=== PATIENT | male | born 1955 | race Caucasian/White ===

== ENCOUNTER 2022-08-18 15:18 | Inpatient (IN) | payer MEDICARE, OTHER ==
[~2022-08-18] VITALS: Ht 180.3 cm; Wt 76.2 kg
--- NOTE | 2022-08-18 16:45 | NUR ---
RECEIVED PT 66 MALE CAME BY PRAMDIC PULL OUT GT PT AWAKE AND CONFUSED
[2022-08-18 17:55] LABS: BASOPHILS # (AUTO) 0.1 K/uL (0.0-0.2); BASOPHILS % (AUTO) 0.6 % (0.0-2.0); EOSINOPHILS % (AUTO) 0.3 % (0.0-6.0); HEMATOCRIT 39 % (39-51); HEMOGLOBIN 12.5 g/dL (13.5-17.5); LYMPHOCYTES % (AUTO) 13.1 % (20.0-44.0); MEAN CORPUSCULAR HGB CONC 32 g/dl (31.0-36.0); MEAN CORPUSCULAR VOLUME 91 fL (80-96); MONOCYTES # (AUTO) 2.2 K/uL (0.1-1.30); MONOCYTES % (AUTO) 14.4 % (2.0-12.0); NEUTROPHILS # (AUTO) 11.2 K/uL (1.8-8.9); NEUTROPHILS % (AUTO) 71.6 % (43.0-81.0); PLATELET COUNT (AUTO) 715 K/uL (150-450); RED BLOOD CELL COUNT(AUTO) 4.32 MIL/uL (4.5-6.0); WHITE BLOOD COUNT (AUTO) 15.6 K/uL (4.3-11.0)
--- NOTE | 2022-08-18 18:06 | NUR ---
COVID ANTIGEN SWAB DONE AND SENT TO THE LAB
[2022-08-18 18:16] LABS: CALCIUM, SERUM 9.6 mg/dL (8.5-10.1); CREATININE 1.1 mg/dL (0.6-1.3); POTASSIUM 4.8 mmol/L (3.5-5.1)
--- NOTE | 2022-08-18 18:29 | NUR ---
IV ACCESS ESTABLISHED 20G LEFT WRIST.
[2022-08-18] MEDS ORDERED: ONDANSETRON HCL/PF 4 MG/2 ML VIAL IVP PRN (19:30)
[2022-08-18] MEDS ORDERED: LORAZEPAM INJ 2 MG/ML VIAL IV PRN (19:30)
[2022-08-18] MEDS ORDERED: DEXTROSE 50%-WATER 50 ML DISP.SYRIN IV PRN (19:30)
[2022-08-18] MEDS ORDERED: ACETAMINOPHEN 325 MG TABLET PO PRN (19:30)
[2022-08-18] MEDS ORDERED: Z GUARD REMEDY 4 OZ OINT TP PRN (19:30)
[2022-08-18] MEDS ORDERED: MAG HYDROX/AL HYDROX/SIMETH 30 ML UDC PO PRN (19:30)
[2022-08-18] MEDS ORDERED: MAGNESIUM HYDROXIDE 30 ML UDC PO PRN (19:30)
--- NOTE | 2022-08-18 19:37 | NUR ---
HAND OFF VINCE
--- NOTE | 2022-08-18 20:08 | NUR ---
REPORT GIVEN TO [employer] FOR HAILE
--- NOTE | 2022-08-18 20:14 | NUR ---
PT TO 3W VIA [facility]
--- NOTE | 2022-08-18 20:15 | NUR ---
GETTING TRANSFERRED TO [facility] IN STABLE CONDITION
[2022-08-18 20:30] VITALS: BP 139/83
--- NOTE | 2022-08-18 20:30 | NUR ---
MS RN NOTES NPO FOR NOW AWAITING GI CONSULT
--- NOTE | 2022-08-18 20:30 | NUR ---
MS EXTRAS CASTING DIRECTOR NOTES RECEIVED FROM ER PER SHAHLA THIS 66 YO MALE,A/O X1, CONFUSED, FROM [facility],WAS SENT HERE DUE GT MALFUNCTION.GT SITE CLEAN CLEAN AND DRY,COVERED WITH DRY DRESSING.WITH SALINE LOCK ON LEFT WRIST #20,STARTED ON IVF D5 1/2 NS AT 75ML/HR RATE,INFUSING VIA IV PUMP.
[2022-08-18] MEDS: IV D5/0.45 NACL 1,000 ML IV PRN (21:10)
[2022-08-18] MEDS: BLOOD SUGAR DIAGNOSTIC 1 EACH STRIP VI SCH (21:54)
--- NOTE | 2022-08-18 22:15 | NUR ---
MS RN NOTES ACCU-CHECK BLOOD SUGAR CHECK 127MG/DL,NO INSULIN COVERAGE.IVF INFUSING ON LEFT WRIST SALINE VIA IV PUMP.
--- NOTE | 2022-08-19 06:00 | NUR ---
MS RN NOTES ACCU-CHECK BLOOD SUGAR CHECK 130,NO INSULIN COVERAGE.IVF INFUSING WELL ON LEFT ARM.
[2022-08-19] MEDS: BLOOD SUGAR DIAGNOSTIC 1 EACH STRIP VI SCH ×4 (06:25→22:50)
[2022-08-19 06:26] LABS: BASOPHILS # (AUTO) 0.1 K/uL (0.0-0.2); BASOPHILS % (AUTO) 0.6 % (0.0-2.0); EOSINOPHILS % (AUTO) 0.1 % (0.0-6.0); HEMATOCRIT 37 % (39-51); HEMOGLOBIN 12.2 g/dL (13.5-17.5); LYMPHOCYTES # (AUTO) 1.8 K/uL (0.8-4.8); LYMPHOCYTES % (AUTO) 13.7 % (20.0-44.0); MEAN CORPUSCULAR HGB CONC 33 g/dl (31.0-36.0); MEAN CORPUSCULAR VOLUME 91 fL (80-96); MONOCYTES # (AUTO) 1.7 K/uL (0.1-1.30); MONOCYTES % (AUTO) 12.8 % (2.0-12.0); NEUTROPHILS # (AUTO) 9.5 K/uL (1.8-8.9); NEUTROPHILS % (AUTO) 72.8 % (43.0-81.0); PLATELET COUNT (AUTO) 696 K/uL (150-450); RED BLOOD CELL COUNT(AUTO) 4.12 MIL/uL (4.5-6.0); WHITE BLOOD COUNT (AUTO) 13.1 K/uL (4.3-11.0)
[2022-08-19 07:03] LABS: CALCIUM, SERUM 9.2 mg/dL (8.5-10.1); MAGNESIUM 2.3 mg/dL (1.8-2.4); PHOSPHORUS 4.3 mg/dL (2.5-4.9); POTASSIUM 4.1 mmol/L (3.5-5.1)
--- NOTE | 2022-08-19 07:06 | NUR ---
MS RN NOTES ON BED CALM AND QUIET,SPEECH GURBLED.IVF INFUSING WELL ON LEFT ARM.NO FALL,NO INJURY.BED ALARM FOR SAFETY. PER RECORD AT [facility],PATIENT CODE STATUS IS DNR.POLST FAXED BY [employer] CONSTRUCTION SALES REPRESENTATIVE AT NIGHT BUT ITS ALL BLACK OUT.PATIENT STILL FULL CODE TILL COPY OF POLST RECEIVED.IN NO ACUTE DISTRESS.
--- NOTE | 2022-08-19 07:20 | NUR ---
RN OPENING NOTES. RECEIVED PT ON BED. PT IS AWAKE, A/OX1. NO SIGNS OF ACUTE DISTRESS NOTED. ON ROOM AIR TOLERATING WELL. NO SOB NOTED, BREATHING EVEN AND UNLABORED. PT IV ACCESS PRESENT ON LEFT HAND #20G RUNNING D5 1/2 NS @75ML/HR, PATENT , INTACT AND FLUSHES WITH NO S&SX OF INFILTRATION @ SITE NOTED. SAFETY MEASURES IS IN PLACE. BED IN LOW AND LOCKED POSITION. SIDE RAILS UP X 3. BED TABLE AND CALL LIGHT IS WITHIN EASY REACH. BED ALARM IS ON. WILL CONTINUE TO MONITOR.
[2022-08-19 08:00] VITALS: BP 150/96
--- NOTE | 2022-08-19 12:45 | NUR ---
MS RN NOTE PATIENT PICKED UP FOR SURGERY SCHEDULED. IN STABLE CONDITION.
[2022-08-19] MEDS ORDERED: CEFAZOLIN 1 GM ONE ×2 (14:28→14:29)
[2022-08-19 16:00] VITALS: BP 160/97
[2022-08-19] MEDS ORDERED: SERT50TA GT (16:44)
[2022-08-19] MEDS ORDERED: LISI20TA30 GT (16:44)
[2022-08-19] MEDS ORDERED: ATOR40TA GT (16:44)
[2022-08-19] MEDS ORDERED: VALP250S4 GT (16:44)
[2022-08-19] MEDS ORDERED: KETO15CR2 TP (16:44)
[2022-08-19] MEDS ORDERED: ASPI-1169 GT (16:44)
[2022-08-19] MEDS ORDERED: NUT.250L18 PO (16:44)
[2022-08-19] MEDS ORDERED: LANS30CA56 GT (16:44)
[2022-08-19] MEDS ORDERED: ENOX40DI SQ (16:44)
[2022-08-19] MEDS ORDERED: CHLO473M5 MM (16:44)
[2022-08-19] MEDS ORDERED: HYDR28.32 TP (16:44)
[2022-08-19] MEDS ORDERED: IPRA3AMP23 IH (16:44)
[2022-08-19] MEDS ORDERED: ACET-868 GT (16:44)
[2022-08-19] MEDS ORDERED: QUET25TA GT ×2 (16:44)
--- NOTE | 2022-08-19 19:10 | NUR ---
RN CLOSING NOTE. PATIENT ON BED, AWAKE, A/OX1, APHASIC. NO SIGNS OF ACUTE DISTRESS NOTED. ON ROOM AIR TOLERATING WELL. NO SOB NOTED, BREATHING EVEN AND UNLABORED. PT IV ACCESS PRESENT ON LEFT HAND #20G RUNNING D5 1/2 NS @75ML/HR, PATENT , INTACT AND FLUSHES WITH NO S&SX OF INFILTRATION @ SITE NOTED. S/P G-TUBE INSERTION. FOR G-TUBE DIETARY CONSULT. SAFETY MEASURES IS IN PLACE. BED IN LOW AND LOCKED POSITION. SIDE RAILS UP X 3. BED TABLE AND CALL LIGHT IS WITHIN EASY REACH. BED ALARM IS ON. WILL ENDORSE TO NIGHT NURSE FOR CONTINUITY OF CARE.
--- NOTE | 2022-08-19 19:50 | NUR ---
MS RN OPENING NOTES RECEIVED PATIENT IN BED AWAKE. A/O X 1, APHASIC. ON ROOM AIR, BREATHING EVEN AND UNLABORED, NO SIGNS OF DISTRESS OR SOB NOTED. IV ACCESS ON LEFT HAND #20G RUNNING D5 1/2 NS @75ML/HR, INFUSING WELL. S/P G-TUBE INSERTION NOTED. SAFETY MEASURES IN PLACE WITH BED IN LOWEST LOCKED POSITION. SIDE RAILS UP X 3. BED TABLE AND CALL LIGHT IS WITHIN EASY REACH. BED ALARM ON. WILL CONTINUE TO MONITOR AND REASSESS FOR ANY CHANGES AND WILL CARRY OUT ANY ONGOING AND ACTIVE MD ORDERS.
[2022-08-19 21:13] VITALS: BP 167/98
[2022-08-19] MEDS: *INSULIN REGULAR(HUMULIN R)HUM 100 UNIT/ML VIAL SQ PRN (23:32)
[2022-08-20] MEDS: IV D5/0.45 NACL 1,000 ML IV PRN ×2 (00:11→13:35)
[2022-08-20] MEDS: INSULIN REGULAR, HUMAN 100 UNIT/ML 3 ML VIAL SQ PRN ×3 (06:48→17:04)
[2022-08-20] MEDS: BLOOD SUGAR DIAGNOSTIC 1 EACH STRIP VI SCH ×4 (06:49→22:00)
--- NOTE | 2022-08-20 07:30 | NUR ---
MS RN OPENING NOTE RECEIVED PT AWAKE AND RESTING IN BED. PT IS A/O X1, REORIENTED PT NEEDED. PT ON ROOM AIR, TOLERATING WELL. NO SOB NOTED. NOT IN ANY SIGN OF RESPIRATORY DISTRESS. IV ACCESS ON RFA G#20 INTACT AND PATENT WITH D5 1/2 NS INFUSING AT 75ML/HR. GTUBE INTACT AND IN PLACE. KEPT HOB ELEVATED. SAFETY MEASURES IN PLACE: BED IN LOWEST AND LOCKED POSITION, SIDE RAILS UPX2, BED ALARM ON, AND CALL LIGHT WITHIN REACH. WILL CONTINUE PT WITH PLAN OF CARE.
--- NOTE | 2022-08-20 07:31 | NUR ---
MS RN CLOSING NOTES PATIENT IN BED AWAKE. A/O X 1, APHASIC. ON ROOM AIR, BREATHING EVEN AND UNLABORED, NO SIGNS OF DISTRESS OR SOB NOTED. IV ACCESS ON LEFT HAND #20G RUNNING D5 1/2 NS @75ML/HR, INFUSING WELL. G-TUBE DRESSING CHANGED. SAFETY MEASURES MAINTAINED WITH BED IN LOWEST LOCKED POSITION. SIDE RAILS UP X 3. BED TABLE AND CALL LIGHT IS WITHIN EASY REACH. BED ALARM ON. WILL ENDORSE TO THE NEXT SHIFT.
[2022-08-20 08:00] VITALS: BP 175/96
--- NOTE | 2022-08-20 09:00 | NUR ---
RN NOTE CALLED DR. FARRELL AND LEFT MESSAGE MADE HIM AWARE THAT PT IS ON S/P GTUBE PLACEMENT DONE YESTERDAY 08/19/22 AND CURRENTLY HAS NO TUBE FEEDING ORDER. AWAITING FOR HIS CALL BACK.
--- NOTE | 2022-08-20 11:30 | NUR ---
RN NOTE PT SEEN BY DR. FARRELL WITH ORDERS TO START PT ON GTUBE FEEDING OF GLUCERNA 1.2 AT 65ML/HR. TO START AT 20ML/HR AND INCREASE 10ML/HR TOLERATED UNTIL THE DOSAGE REACHED. ORDERS CARRIED OUT. Addendum: 08/20/22 at 1848 by JORGE SANCHEZ RN ADDENDUM: GTUBE FEEDING TO INFUSE FOR 24HRS.
[2022-08-20] MEDS: GLUCERNA 1.2 1,000 ML BOTTLE GT PRN (12:59)
--- NOTE | 2022-08-20 15:40 | NUR ---
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 CALLED DR. FARRELL AND MADE HIM AWARE OF THE CRITICAL RESULT WITH NO NEW ORDERS AT THIS TIME.
[2022-08-20 16:17] VITALS: BP 171/93
--- NOTE | 2022-08-20 18:30 | NUR ---
RN NOTE PT NOTED WITH VOMITING X1 WHILE ON GTUBE FEEDING OF GLUCERNA 1.2 AT 20ML/HR. RESIDUAL WAS 10ML WHEN CHECKED. FEEDING STOPPED AND KEPT HOB ELEVATED AT ALL TIMES. CALL DR. FARRELL AND MADE HIM AWARE OF PT'S CONDITION WITH ORDERS TO STOP FEEDING AT THIS TIME THEN RESUME IN 2 HOURS STARTING AT 20ML AGAIN. WILL ENDORSE TO SENIOR POLICY ADVISOR NURSE.
--- NOTE | 2022-08-20 19:25 | NUR ---
MS RN CLOSING NOTE PT AWAKE AND RESTING IN BED. PT IS A/O X1, REORIENTED PT NEEDED. PT ON ROOM AIR, TOLERATING WELL. NO SOB NOTED. NOT IN ANY SIGN OF RESPIRATORY DISTRESS. IV ACCESS ON RFA G#20 INTACT AND PATENT WITH D5 1/2 NS INFUSING AT 75ML/HR. GTUBE INTACT AND IN PLACE. KEPT HOB ELEVATED. ALL NEEDS ATTENDED. KEPT CLEAN AND COMFORTABLE AT ALL TIMES. TURNED AND REPOSITIONED Q2HRS AND NEEDED. SAFETY MEASURES IN PLACE: BED IN LOWEST AND LOCKED POSITION, SIDE RAILS UPX2, BED ALARM ON, AND CALL LIGHT WITHIN REACH. ENDORSED TO OUTSIDE INSTALLER APPRENTICE NURSE FOR HAILE. Addendum: 08/20/22 at 1936 by JORGE SANCHEZ RN ADDENDUM: ENDORSED TO OUTSIDE INSTALLER APPRENTICE NURSE TO RESUME GTUBE FEEDING AT 2030 STARTING AT 20ML/HR AND TO INCREASE TOLERATED PER MD'S ORDER.
[2022-08-20 20:00] VITALS: BP 139/79
--- NOTE | 2022-08-20 20:33 | NUR ---
MS RN OPENING NOTES; RECEIVED PATIENT SLEEP IN BED, COMFORTABLY, AROUSABLE TO VERBAL STIMULI, BE DIN LOW POSITION CALL LIGHTS WITHIN REACH, NO COMPLAIN OF PAIN AND DISCOMFORT AT THIS TIME, ON ROOM AIR SATURATING WELL, PATIENT IS A/O X1 IV LINE AT RFA#20 WITH ONGOING D5 1/2 NSS@75ML/HR INFUSING WELL, PATIENT IS NPO S/P GT PLACEMENT TO HOLD AND RESUME AFTER 2 HOURS TO START AT 20 AND INCREASE TO 20ML TO REACH 65ML/HR , PATIENT HAS VOMITTING EPISODE IN AM SHIFT HOSPITALIST WAS MADE AWARE, PATIENT KEPT CLEAN AND DRY ALL NEEDS MET, WILL CONTINUE TO MONITOR.
[2022-08-20] MEDS: *INSULIN REGULAR(HUMULIN R)HUM 100 UNIT/ML VIAL SQ PRN (22:48)
--- NOTE | 2022-08-20 22:49 | NUR ---
RN NOTES: BLOOD SUGAR- 181- 3 UNITS REGULAR INSULIN GIVEN PER SLIDING SCALE,
[2022-08-21] MEDS: IV D5/0.45 NACL 1,000 ML IV PRN ×2 (02:54→17:09)
[2022-08-21 05:56] LABS: BASOPHILS # (AUTO) 0.2 K/uL (0.0-0.2); BASOPHILS % (AUTO) 0.6 % (0.0-2.0); HEMATOCRIT 39 % (39-51); HEMOGLOBIN 12.5 g/dL (13.5-17.5); LYMPHOCYTES % (AUTO) 7.2 % (20.0-44.0); MEAN CORPUSCULAR HGB CONC 32 g/dl (31.0-36.0); MEAN CORPUSCULAR VOLUME 91 fL (80-96); MONOCYTES # (AUTO) 1.9 K/uL (0.1-1.30); NEUTROPHILS # (AUTO) 23.6 K/uL (1.8-8.9); NEUTROPHILS % (AUTO) 85.2 % (43.0-81.0); PLATELET COUNT (AUTO) 675 K/uL (150-450); WHITE BLOOD COUNT (AUTO) 27.7 K/uL (4.3-11.0)
--- NOTE | 2022-08-21 06:25 | NUR ---
RN NOTES: INITIATE G TUBE FEEDING OF GLUCERNA 1.2@20 ML/HR TO INCREASE 10ML TILL REACH GOAL OF 65, PATIENT HAS AN EPISODE OF VOMITING, YESTERDAY IN AM SHIFT, NOTIFIED DR AND ORDERED TO RESUME FEEDING IN AM, PATIENT WAS ABLE TO TOLERATE WELL, WILL CONTINUE TO MONITOR FOR ANY CHANGES AND ENDORSE IN AM SHIFT.
[2022-08-21] MEDS: INSULIN REGULAR, HUMAN 100 UNIT/ML 3 ML VIAL SQ PRN ×5 (06:39→22:23)
--- NOTE | 2022-08-21 06:51 | NUR ---
RN NOTES: BLOOD SUGAR-155/ 2 UNITS REGULSR INSULIN GIVEN PER SLIDING SCALE.
--- NOTE | 2022-08-21 06:54 | NUR ---
MS RN CLOSING NOTES: RECEIVED PATIENT SLEEP IN BED COMFORTABLY, AROUSABLE TO VERBAL STIMULI, BED IN LOW POSITION CALL LIGHTS WITHIN REACH, NO COMPLAIN OF PAIN AND DISCOMFORT AT THIS TIME, ON ROOM AIR SATURATING WELL, PATIENT ON G TUBE FEEDING INITIATE AGAIN AT 20ML/HR TO INCREASE AT 10 TO REACH 65ML/HR, PATIENT WAS NOT ABLE TO TOLERATE FEEDING AND HAS EPISODE OF VOMITING, ON CONTINUOUS MONITORING NO EPISODE OF VOMITING AND WAS ABLE TO TOLERATE AT 20ML/HR, PATIENT WAS S/P G TUBE INSERTION, HAS ABDOMINAL BINDER IN PLACE, PATIENT KEPT CLEAN AND DRY ALL NEEDS MET ENDORSE TO INCOMING SHIFT.
--- NOTE | 2022-08-21 07:30 | NUR ---
MS RN OPENING NOTE RECEIVED PT AWAKE AND RESTING IN BED. PT IS A/O X1, REORIENTED PT NEEDED. PT ON ROOM AIR, TOLERATING WELL. NO SOB NOTED. NOT IN ANY SIGN OF RESPIRATORY DISTRESS. IV ACCESS ON RFA G#20 INTACT AND PATENT WITH D5 1/2 NS INFUSING AT 75ML/HR. GTUBE INTACT AND IN PLACE. ABD BINDER APPLIED ORDERED. SKIN CLEAN AND INTACT.KEPT HOB ELEVATED. SAFETY MEASURES IN PLACE: BED IN LOWEST AND LOCKED POSITION, SIDE RAILS UPX2, BED ALARM ON, AND CALL LIGHT WITHIN REACH. WILL CONTINUE PT WITH PLAN OF CARE.
[2022-08-21] MEDS: BLOOD SUGAR DIAGNOSTIC 1 EACH STRIP VI SCH ×4 (07:36→22:27)
[2022-08-21 08:13] VITALS: BP 160/96
[2022-08-21 08:49] LABS: ALBUMIN 2.2 g/dL (3.4-5.0); BILIRUBIN,TOTAL 0.6 mg/dL (0.2-1.0); CALCIUM, SERUM 9.3 mg/dL (8.5-10.1); CREATININE 1.2 mg/dL (0.6-1.3); MAGNESIUM 2.1 mg/dL (1.8-2.4); PHOSPHORUS 3.9 mg/dL (2.5-4.9); POTASSIUM 4.1 mmol/L (3.5-5.1); TOTAL PROTEIN, SERUM 7.8 g/dL (6.4-8.2)
--- NOTE | 2022-08-21 09:51 | NUR ---
MS RN NOTES: DR. ROSENTHAL NOTIFIED WBC 27.7 WITH NEW ORDER REPEAT CBC AT 1000
--- NOTE | 2022-08-21 10:30 | NUR ---
DR. ROSENTHAL NOTIFIED FOR POSITIVE MRSA NARES WITH NO NEW ORDER AT THIS TIME.
[2022-08-21 10:38] LABS: HEMOGLOBIN 11.8 g/dL (13.5-17.5); LYMPHOCYTES # (AUTO) 2.1 K/uL (0.8-4.8); LYMPHOCYTES % (AUTO) 6.6 % (20.0-44.0)
[2022-08-21 11:05] LABS: BASOPHILS % (AUTO) 0.1 % (0.0-2.0); HEMATOCRIT 37 % (39-51); MEAN CORPUSCULAR HGB CONC 32 g/dl (31.0-36.0); MEAN CORPUSCULAR VOLUME 90 fL (80-96); MONOCYTES # (AUTO) 2.1 K/uL (0.1-1.30); MONOCYTES % (AUTO) 6.8 % (2.0-12.0); NEUTROPHILS # (AUTO) 27.2 K/uL (1.8-8.9); NEUTROPHILS % (AUTO) 86.5 % (43.0-81.0); PLATELET COUNT (AUTO) 652 K/uL (150-450); RED BLOOD CELL COUNT(AUTO) 4.07 MIL/uL (4.5-6.0)
[2022-08-21 11:22] LABS: WHITE BLOOD COUNT (AUTO) 31.4 K/uL (4.3-11.0)
--- NOTE | 2022-08-21 11:31 | NUR ---
RECEIVED A CRITICAL LAB VALUE. WBC OF 31.4, DR VELAZCO WAS MADE AWARE AND HE SAID HOLD DC AND HE WILL CALL DR. HERNANDEZ FOR A CONSULT.
--- NOTE | 2022-08-21 12:59 | NUR ---
MS RN NOTE URINE COLLECTED AND SENT TO LAB
[2022-08-21 14:53] LABS: BILIRUBIN,URINE 1+ (NEGATIVE); COLOR,URINE YELLOW (YELLOW); LEUKOCYTE ESTERASE ,URINE 2+ (NEGATIVE); NITRITE, URINE POSITIVE (NEGATIVE); PROTEIN,URINE 2+ mg/dl (NEGATIVE); UGLUCOSE NEGATIVE (NEGATIVE)
[2022-08-21 15:32] LABS: BACTERIA,URINE Many /HPF (None Seen)
[2022-08-21 16:22] LABS: SQUAMOUS EPITHELIAL CELL,UR Few /HPF (None Seen)
[2022-08-21 16:44] VITALS: BP 158/84
[2022-08-21 17:34] LABS: LYMPHOCYTES % (MANUAL) 7 % (16-48); MONOCYTES % (MANUAL) 8 % (0-11.0); NEUTROPHILS % (MANUAL) 85 (42-76)
--- NOTE | 2022-08-21 18:28 | NUR ---
MS RN CLOSING NOTE PT AWAKE AND RESTING IN BED. PT IS A/O X1.. PT ON ROOM AIR, TOLERATING WELL. NO SOB NOTED. NOT IN ANY SIGN OF RESPIRATORY DISTRESS. IV ACCESS ON RFA G#20 INTACT AND PATENT WITH D5 1/2 NS INFUSING AT 75ML/HR. GTUBE INTACT AND IN PLACE. GT FEEDING TOLERATED. NO N/V NOTED. ABD BINDER PLACED. NO S/S OF SKIN BREAKDOWN NOTED. . KEPT HOB ELEVATED. ALL NEEDS ATTENDED. KEPT CLEAN AND COMFORTABLE AT ALL TIMES. TURNED AND REPOSITIONED Q2HRS AND NEEDED. SAFETY MEASURES IN PLACE: BED IN LOWEST AND LOCKED POSITION, SIDE RAILS UPX2, BED ALARM ON, AND CALL LIGHT WITHIN REACH. ENDORSED TO SCALEMAKER NURSE FOR HAILE.
--- NOTE | 2022-08-21 19:20 | NUR ---
RN OPENING NOTES; RECEIVED PT IN BED WITH EYES CLOSED BUT EASY TO AROUSED,AOX1 APHASIC,KRIS WELL ON RM AIR SAT 98%,NO SIGN SOB/DISTRESS NOTED,IV ACCESS ON RFA 20G WITH D5 1/2NS 75ML/HR INFUSING WELL,GTUBE IN PLACE WITH GLUCERNA 40ML/HR INFUSING WELL,NO RESIDUAL,HOB ELEVATED AT ALL TIME,SAFETY MEASURE IN PLACE,CALL LIGHT WITHIN REACH,WILL CONTINUE TO MONITOR.
[2022-08-21 20:11] VITALS: BP 132/74
[2022-08-21] MEDS ORDERED: PIPERACILLIN /TAZOBACTAM 3.375 G in IV D5W 50 ML IV SCH (21:00)
[2022-08-21] MEDS: PIPERACILLIN /TAZOBACTAM 3.375 G in IV D5W 100 ML IV SCH (21:21)
[2022-08-22] MEDS: PIPERACILLIN /TAZOBACTAM 3.375 G in IV D5W 100 ML IV SCH ×3 (04:19→21:01)
--- NOTE | 2022-08-22 06:15 | NUR ---
RN CLOSING NOTES; PATIENT IN BED WITH EYES CLOSED BUT EASY TO AROUSED,AOX1 APHASIC,KRIS WELL ON RM AIR SAT 97%,NO SIGN SOB/DISTRESS NOTED,DUE MEDS GIVEN ORDER,ALL NEEDS ATTENDED,IV ACCESS ON LFA 22G WITH D5 1/2NS 75ML/HR INFUSING WELL,GTUBE IN PLACE WITH GLUCERNA 40ML/HR INFUSING WELL,EXTRA FLUID GIVEN VIA GT KRIS,NO RESIDUAL,HOB ELEVATED AT ALL TIME,SAFETY MEASURE IN PLACE,CALL LIGHT WITHIN REACH,WILL ENDORSED TO NEXT SHIFT.
[2022-08-22] MEDS: INSULIN REGULAR, HUMAN 100 UNIT/ML 3 ML VIAL SQ PRN ×3 (06:39→17:46)
[2022-08-22] MEDS: BLOOD SUGAR DIAGNOSTIC 1 EACH STRIP VI SCH ×4 (06:45→21:47)
--- NOTE | 2022-08-22 07:05 | NUR ---
RN NOTES; TWO TIMES TO ATTEMPT STRAIGHT CATH BUT NO OUT PUT,PT URINATE IN THE DIAPER, WATER FLUSHING THE GTUBE 500ML DURING SHIFT.
--- NOTE | 2022-08-22 07:30 | NUR ---
MS RN OPENING NOTES RECEIVED PT LYING IN BED WITH EYES CLOSED, EASY TO AROUSE, APHASIC, IN SEMI-FOWLERS POSITION. ON RA BREATHING NORMALLY. IV ACCESS ON LFA 24 G RUNNING ON D5 1/2 NS 75 ML/HR. GTUBE IN PLACED WITH GLUCERNA RUNNING AT 50 ML/HR. INCONTINENT X2. NO COMPLAINTS OF PAIN. FALL SAFETY MEASURES IN PLACED AND MAINTAIN AT ALL TIMES. BED IN LOW AND LOCK POSITION. CALL LIGHT WITHIN REACH. SIDE RAILS UP X2. WILL CONTINUE TO MONITOR.
[2022-08-22 08:06] LABS: BASOPHILS % (AUTO) 0.1 % (0.0-2.0); HEMATOCRIT 36 % (39-51); HEMOGLOBIN 11.8 g/dL (13.5-17.5); LYMPHOCYTES # (AUTO) 1.6 K/uL (0.8-4.8); LYMPHOCYTES % (AUTO) 6.1 % (20.0-44.0); MEAN CORPUSCULAR HGB CONC 32 g/dl (31.0-36.0); MEAN CORPUSCULAR VOLUME 90 fL (80-96); MONOCYTES # (AUTO) 1.5 K/uL (0.1-1.30); MONOCYTES % (AUTO) 5.9 % (2.0-12.0); NEUTROPHILS % (AUTO) 87.9 % (43.0-81.0); PLATELET COUNT (AUTO) 550 K/uL (150-450); RED BLOOD CELL COUNT(AUTO) 4.05 MIL/uL (4.5-6.0); WHITE BLOOD COUNT (AUTO) 26.2 K/uL (4.3-11.0)
[2022-08-22 08:21] VITALS: BP 126/82
[2022-08-22 08:27] LABS: BILIRUBIN,TOTAL 0.5 mg/dL (0.2-1.0); CREATININE 0.9 mg/dL (0.6-1.3); MAGNESIUM 2.3 mg/dL (1.8-2.4); PHOSPHORUS 3.5 mg/dL (2.5-4.9); POTASSIUM 3.5 mmol/L (3.5-5.1); TOTAL PROTEIN, SERUM 7.3 g/dL (6.4-8.2)
[2022-08-22 16:02] VITALS: BP 130/77
--- NOTE | 2022-08-22 18:26 | NUR ---
MS RN CLOSING NOTES PT LYING IN BED RESTING COMFORTABLY, EASY TO AROUSE, APHASIC, IN SEMI-FOWLERS POSITION. ON RA BREATHING NORMALLY. IV ACCESS ON RFA 22 G RUNNING ON D5 1/2 NS 75 ML/HR. GTUBE IN PLACED WITH GLUCERNA RUNNING AT 65 ML/HR. PT WAS THREW UP WITH MINIMAL EMESIS. ZOFRAN PRN GIVEN. REFUSED INSULIN SLIDING SCALE IN DINNER TIME. KEPT HEAD OF BED ELEVATED. NO COMPLAINTS OF PAIN. FALL SAFETY MEASURES IN PLACED AND MAINTAIN AT ALL TIMES. BED IN LOW AND LOCK POSITION. CALL LIGHT WITHIN REACH. SIDE RAILS UP X2. WILL ENDORSE TO NIGHTSHIFT NURSE.
--- NOTE | 2022-08-22 19:00 | NUR ---
MS STUDIO HAND INITIAL NOTES Received report from am nurse and seen py in bed resting with eyes closed , breathing even and non-labored on semi fowlers position with g-tube off at this time because per am nurse pt had nausea and some emesis but subside after zofran given. No signs of any acute distress noted . He still have IVF of D51/2 NS at 75ml/hr infusing at this time. Kept him warm and comfortable at all times. Bed in low and lock in position with side rails x2 up and bed alarm set for safety. will continue monitoring.
[2022-08-22] MEDS: MUPIROCIN OINT 2% 22 GM TUBE NS SCH (21:21)
--- NOTE | 2022-08-22 21:41 | NUR ---
RN NOTE PATIENT IS ANXIOUS AND AGITATED. LORAZEPAM INJ 0.5 MG 0.25 ML GIVEN IV ORDERED. KEPT COMFORTABLE IN BED. WILL CONTINUE TO MONITOR PT.
[2022-08-22] MEDS: *INSULIN REGULAR(HUMULIN R)HUM 100 UNIT/ML VIAL SQ PRN (21:50)
[2022-08-22 21:56] VITALS: BP 158/89
--- NOTE | 2022-08-22 22:00 | NUR ---
ms sylvester notes blood sugar checked done 165, 2 units of Insulin given as ordered. Resumed his G-tube feeding as ordered, kept him on sitting position for aspiration precaution. No signs of hypo glycemia noted. will continue monitoring.
[2022-08-23] MEDS: PIPERACILLIN /TAZOBACTAM 3.375 G in IV D5W 100 ML IV SCH ×3 (04:55→20:42)
[2022-08-23] MEDS: GLUCERNA 1.2 1,000 ML BOTTLE GT PRN (05:26)
[2022-08-23] MEDS: IV D5/0.45 NACL 1,000 ML IV PRN (05:27)
[2022-08-23 06:35] LABS: BASOPHILS # (AUTO) 0.1 K/uL (0.0-0.2); BASOPHILS % (AUTO) 0.6 % (0.0-2.0); HEMATOCRIT 36 % (39-51); HEMOGLOBIN 11.8 g/dL (13.5-17.5); LYMPHOCYTES % (AUTO) 10.6 % (20.0-44.0); MEAN CORPUSCULAR HGB CONC 33 g/dl (31.0-36.0); MEAN CORPUSCULAR VOLUME 90 fL (80-96); MONOCYTES % (AUTO) 5.5 % (2.0-12.0); NEUTROPHILS # (AUTO) 15.3 K/uL (1.8-8.9); NEUTROPHILS % (AUTO) 83.3 % (43.0-81.0); PLATELET COUNT (AUTO) 542 K/uL (150-450); RED BLOOD CELL COUNT(AUTO) 4.02 MIL/uL (4.5-6.0); WHITE BLOOD COUNT (AUTO) 18.4 K/uL (4.3-11.0)
[2022-08-23] MEDS: BLOOD SUGAR DIAGNOSTIC 1 EACH STRIP VI SCH ×4 (06:38→21:31)
[2022-08-23] MEDS: INSULIN REGULAR, HUMAN 100 UNIT/ML 3 ML VIAL SQ PRN ×4 (06:45→21:52)
--- NOTE | 2022-08-23 07:31 | NUR ---
MS TIN CLOSING NOTES Pt. resting at this time. pain meds helped but he stated that his pain on and off. He also stated "thank you" . All due meds given and all needs met . No signs of any acute distress or any discomfort noted at this time. Kept him warm and comfortable at all times. Bed in low and lock in position . will endorse to am nurse for continuity of care. Place call light at reach. Addendum: 08/23/22 at 0734 by ELI SANCHEZ LVN disregards this notes belong to other patient.
--- NOTE | 2022-08-23 07:36 | NUR ---
MS RN OPENING NOTE (DAYSHIFT) RECEIVED PT LYING IN BED WITH EYES CLOSED, EASY TO AROUSE, APHASIC, IN SEMI-FOWLERS POSITION. ON RA BREATHING NORMALLY. IV ACCESS ON LFA 24 G INFUSING D5 1/2 NS AT 75 ML/HR. G-TUBE IN PLACE WITH GLUCERNA RUNNING AT 50 ML/HR. (INCREASED FEEDING TO 65 mLs/ HR. NO COMPLAINTS OF PAIN. FALL SAFETY MEASURES IN PLACE AND MAINTAINED AT ALL TIMES. BED IN LOW AND LOCKED POSITION. CALL LIGHT WITHIN REACH. SIDE RAILS UP X 2. WILL CONTINUE TO MONITOR AND CARE FOR PATIENT PER HOSPITALIST'S POC.
--- NOTE | 2022-08-23 07:39 | NUR ---
MS WARHEAD MAINTENANCE SPECIALIST CLOSING NOTES PT AWAKE AT THIS TIME WATCHING TV , NO SIGNS OF ANY DISTRESS OR ANY DISCOMFORT. NO ASPIRATION NOTED THROUGOUT THE NIGHT. HE TOLERATED G-TUBE FEEDING WELL. KEPT HIM HOB ELEVATED FOR ASPIRATION PRECAUTION. ALL DUE MEDS GIVEN AND ALL NEEDS MET. MORNING CARE DONE WITH THE HELPED OF HVAC MECHANIC AND REPOSITION FOR COMFORT. BED IN LOW AND LOCK IN POSITION WITH SIDE RAILS X2 UP AND BED ALARM SET FOR SAFETY. ENDORSE TO AM NURSE FOR CONTINUITY OF CARE.
[2022-08-23 08:00] VITALS: BP 118/94
[2022-08-23] MEDS: MUPIROCIN OINT 2% 22 GM TUBE NS SCH ×2 (08:30→20:54)
[2022-08-23 08:44] LABS: ALBUMIN 1.9 g/dL (3.4-5.0); BILIRUBIN,TOTAL 0.6 mg/dL (0.2-1.0); CALCIUM, SERUM 8.8 mg/dL (8.5-10.1); MAGNESIUM 2.3 mg/dL (1.8-2.4); PHOSPHORUS 3.3 mg/dL (2.5-4.9); POTASSIUM 3.4 mmol/L (3.5-5.1); TOTAL PROTEIN, SERUM 7.3 g/dL (6.4-8.2)
[2022-08-23] MEDS ORDERED: POTASSIUM CHLORIDE 20 MEQ POWDER PACKET NG SCH (12:00)
[2022-08-23 16:00] VITALS: BP 144/81
--- NOTE | 2022-08-23 18:40 | NUR ---
MS RN CLOSING NOTE (DAYSHIFT) PT LYING IN BED RESTING COMFORTABLY, EASY TO AROUSE, APHASIC, IN SEMI-FOWLERS POSITION. ON RA BREATHING NORMALLY. IV ACCESS ON RFA 22 G RUNNING ON D5 1/2 NS 75 ML/HR. G-TUBE IN PLACED WITH GLUCERNA RUNNING AT 65 ML/HR. PT TOLERATED TUBE FEED WELL TODAY WITHOUT ANY SIGNS OF NAUSEA, SMALL RESIDUALS OF 10MLS, AND NO VOMITTIMNG. KEPT HEAD OF BED ELEVATED. NO SIGNS OF PAIN. FALL SAFETY MEASURES IN PLACE AND MAINTAINED AT ALL TIMES. BED IN LOW AND LOCK POSITION. CALL LIGHT WITHIN REACH. SIDE RAILS UP X 2. WILL ENDORSE TO NIGHTSHIFT NURSE FOR HAILE.
--- NOTE | 2022-08-23 19:00 | NUR ---
RN OPENING NOTE RECEIVED PATIENT AWAKE AND RESTING IN BED. A/OX1. PT IS IN RA, TOLERATING WELL, BREATHING EVEN AND UNLABORED @ THIS TIME. PT IV PRESENT ON RIGHT FOREARM #22G RUNNING D5 1/2 NS 1000ML @75 MLS/HR, PATENT, INTACT AND FLUSHES WELL. PT G-TUBE IS IN PLACE RUNNING GLUCERNA @ 65 MLS/HR, W/ 10CC RESIDUAL. SAFETY MEASURE IS IN PLACE. BED AT ITS LOWEST AND LOCK POSITION. SIDE RAILS UP X 2. BEDSIDE TABLE AND CALL LIGHT IS EASY REACH. BED ALARM IS ON. WILL CONTINUE TO MONITOR PT ACCORDINGLY.
[2022-08-23 20:00] VITALS: BP 142/102
[2022-08-24] MEDS: PIPERACILLIN /TAZOBACTAM 3.375 G in IV D5W 100 ML IV SCH ×3 (04:47→21:41)
[2022-08-24] MEDS: BLOOD SUGAR DIAGNOSTIC 1 EACH STRIP VI SCH ×4 (05:56→21:41)
[2022-08-24] MEDS: INSULIN REGULAR, HUMAN 100 UNIT/ML 3 ML VIAL SQ PRN ×4 (06:09→22:02)
[2022-08-24] MEDS: GLUCERNA 1.2 1,000 ML BOTTLE GT PRN (06:10)
--- NOTE | 2022-08-24 06:39 | NUR ---
RN CLOSING NOTE PATIENT ASLEEP AND RESTING COMFORTABLY IN BED. A/OX1. PT IS IN RA, W/ NO RESPIRATORY DISTRESS @ THIS TIME, O2 SAT 93%. PT IV PRESENT ON RIGHT FOREARM #22G RUNNING D5 1/2 NS 1000ML @75MLS/HR, PATENT, INTACT AND FLUSHES WELL, W/ NO S & SX OF INFILTRATION. PT G-TUBE IS IN PLACE RUNNING GLUCERNA @ 65 MLS/HR, W/ NO RESIDUAL. PT IS ON 1X DIAPER CHANGE, KEPT CLEAN AND DRY. ADMINISTERED MEDICATION ACCORDINGLY PER MD'S ORDER. SAFETY MEASURE IS IN PLACE. BED AT ITS LOWEST AND LOCK POSITION. SIDE RAILS UP X 4. BEDSIDE TABLE AND CALL LIGHT IS EASY REACH. BED ALARM IS ON. WILL ENDORSE TO THE NEXT SHIFT FOR CONTINUITY OF CARE.
[2022-08-24 07:00] VITALS: BP 151/88
[2022-08-24 07:08] LABS: BASOPHILS # (AUTO) 0.1 K/uL (0.0-0.2); BASOPHILS % (AUTO) 0.5 % (0.0-2.0); EOSINOPHILS % (AUTO) 0.5 % (0.0-6.0); HEMATOCRIT 35 % (39-51); HEMOGLOBIN 11.4 g/dL (13.5-17.5); LYMPHOCYTES % (AUTO) 15.7 % (20.0-44.0); MEAN CORPUSCULAR HGB CONC 33 g/dl (31.0-36.0); MEAN CORPUSCULAR VOLUME 89 fL (80-96); MONOCYTES # (AUTO) 0.8 K/uL (0.1-1.30); MONOCYTES % (AUTO) 6.7 % (2.0-12.0); NEUTROPHILS # (AUTO) 9.7 K/uL (1.8-8.9); NEUTROPHILS % (AUTO) 76.6 % (43.0-81.0); PLATELET COUNT (AUTO) 540 K/uL (150-450); RED BLOOD CELL COUNT(AUTO) 3.91 MIL/uL (4.5-6.0); WHITE BLOOD COUNT (AUTO) 12.7 K/uL (4.3-11.0)
[2022-08-24 07:15] LABS: ALBUMIN 1.8 g/dL (3.4-5.0); BILIRUBIN,TOTAL 0.4 mg/dL (0.2-1.0); CALCIUM, SERUM 8.6 mg/dL (8.5-10.1); CREATININE 0.8 mg/dL (0.6-1.3); MAGNESIUM 2.2 mg/dL (1.8-2.4); PHOSPHORUS 3.3 mg/dL (2.5-4.9); POTASSIUM 3.4 mmol/L (3.5-5.1)
--- NOTE | 2022-08-24 07:32 | NUR ---
MS RN OPENING NOTE (DAYSHIFT) RECEIVED PT LYING IN BED WITH EYES CLOSED, EASY TO AROUSE, APHASIC, IN SEMI-FOWLERS POSITION. ON RA BREATHING NORMALLY. IV ACCESS ON LFA 24 G INFUSING D5 1/2 NS AT 75 ML/HR. G-TUBE IN PLACE WITH GLUCERNA RUNNING AT 65 ML/HR. NO SIGNS OF PAIN. FALL SAFETY MEASURES IN PLACE AND MAINTAINED AT ALL TIMES. BED IN LOW AND LOCKED POSITION. CALL LIGHT WITHIN REACH. SIDE RAILS UP X 2. ASPIRATION PRECAUTIONS MAINTAINED WITH HOB ELEVATED 45 DEGREES. WILL CONTINUE TO MONITOR AND CARE FOR PATIENT PER HOSPITALIST'S POC.
[2022-08-24] MEDS ORDERED: POTASSIUM CHLORIDE 20 MEQ POWDER PACKET NG SCH (09:00)
[2022-08-24] MEDS: MUPIROCIN OINT 2% 22 GM TUBE NS SCH ×2 (09:17→21:00)
[2022-08-24 16:00] VITALS: BP 153/85
--- NOTE | 2022-08-24 19:00 | NUR ---
RN OPENING NOTE RECEIVED PT FROM NURSE MARIE. PT IS AWAKE ON BED. A/O X 1. PT IS IN RA TOLERATING WELL, BREATHING EVEN AND UNLABORED @ THIS TIME. PT IS ANXIOUS D/T SOAKED DIAPER. PT'S IV PRESENT ON RIGHT FOREARM HAS REDNESS AND ARM COLD TO TOUCH. IV SITE IS INFILTRATED. PT G-TUBE IS IN PLACE RUNNING GLUCERNA @ 65 MLS/HR. SAFETY MEASURES IS IN PLACE. BED IS IN LOWEST AND LOCK POSITION. SIDE RAILS UP X 4. BEDSIDE TABLE AND CALL LIGHT IS EASY REACH. BED ALARM IS ON. WILL CONTINUE TO MOINTOR PT ACCORDINGLY.
--- NOTE | 2022-08-24 19:03 | NUR ---
MS RN CLOSING NOTE (DAYSHIFT) PT LYING IN BED RESTING COMFORTABLY, EASY TO AROUSE, APHASIC, IN SEMI-FOWLERS POSITION. ON RA BREATHING NORMALLY. IV ACCESS ON RFA 22 G RUNNING ON D5 1/2 NS 75 ML/HR. G-TUBE IN PLACED WITH GLUCERNA RUNNING AT 65 ML/HR. PT TOLERATED TUBE FEED WELL TODAY WITHOUT ANY SIGNS OF NAUSEA, SMALL RESIDUALS OF 15 MLS, AND NO VOMITING. KEPT HEAD OF BED ELEVATED. NO SIGNS OF PAIN. FALL SAFETY MEASURES IN PLACE AND MAINTAINED AT ALL TIMES. BED IN LOW AND LOCK POSITION. CHECKED PT FREQUENTLY AND BED ALARM ON AT ALL TIMES. SIDE RAILS UP X 2. WILL ENDORSE TO CHIP MUCKER NURSE FOR HAILE.
--- NOTE | 2022-08-24 19:50 | NUR ---
IV OUT D/T TO IV INFILTRATION. ATTEMPTED 2X TO INSERT.CHARGE NURSE IS INFORMED AND NOTIFIED. WILL CONTINUE TO FOLLOW UP ON PT.
[2022-08-24 20:04] VITALS: BP 124/67
[2022-08-25] MEDS: GLUCERNA 1.2 1,000 ML BOTTLE GT PRN (03:12)
[2022-08-25] MEDS: PIPERACILLIN /TAZOBACTAM 3.375 G in IV D5W 100 ML IV SCH ×2 (04:29→12:00)
--- NOTE | 2022-08-25 07:11 | NUR ---
rn closing note PT IS AWAKE & RESTING COMFORTABLY IN BED. A/O X 1. PT IS IN RA, NO S & SX RESPIRATORY DISTRESS @ THIS TIME. PT IS RESPONSIVE AND FOLLOWS VERBAL COMMAND. PT'S IV PRESENT ON LEFT FOREARM RUNNING D5 1/2 NS @ 75 MLS/HR, PATENT, INTACT AND FLUSHES WELL, W/ NO S& SX OF INFILTRATION @ SITE NOTED. PT G-TUBE IS IN PLACE RUNNING GLUCERNA @ 65 MLS/HR, PT TOLERATING FEEDING WELL WITH NO RESIDUAL. PT DIAPER CHANGED X 2, KEPT CLEAN, DRY AND COMFORTABLE. ADMINISTERED MEDICATION ACCORDINGLY PER MD'S ORDER. SAFETY MEASURES IS IN PLACE. BED IS IN LOWEST AND LOCK POSITION. SIDE RAILS UP X 4. BEDSIDE TABLE AND CALL LIGHT IS EASY REACH. BED ALARM IS ON. WILL ENDORSE TO THE NEXT SHIFT FOR CONTINUITY OF CARE.
--- NOTE | 2022-08-25 07:15 | NUR ---
MS RN OPENING NOTE RECEIVED PATIENT LYING IN BED, AWAKE, ONLY AWARE OF SELF, APHASIC, IN SEMI-FOWLERS POSITION. ON ROOM AIR BREATHING WITHOUT DIFFICULTY. IV ACCESS ON LFA G#22 INFUSING D5 1/2 NS AT 75 ML/HR AND ZOSYN AT 25 ML/HR ALMOST COMPLETED. WITH G-TUBE IN PLACE INTACT, WRAPPED IN ABDOMINAL BINDER WITH GLUCERNA 1.2 RUNNING AT 65 ML/HR, NO RESIDUAL NOTED. DENIES PAIN AND FLACC SCORE IS 0. FALL AND SAFETY MEASURES IN PLACE AND MAINTAINED AT ALL TIMES: BED IN LOWEST AND LOCKED POSITION. CALL LIGHT WITHIN REACH. SIDE RAILS UP X 2. WILL CONTINUE TO MONITOR.
[2022-08-25] MEDS: BLOOD SUGAR DIAGNOSTIC 1 EACH STRIP VI SCH ×2 (07:37→11:51)
[2022-08-25] MEDS: INSULIN REGULAR, HUMAN 100 UNIT/ML 3 ML VIAL SQ PRN ×2 (07:54→11:55)
--- NOTE | 2022-08-25 07:58 | NUR ---
RN NOTES - GIVEN INSULIN SQ - 3 UNITS OF HUMILIN R, BLOOD GLUCOSE READING OF 162 MG/DL COLLAR FOLDER OPERATOR UNABLE TO GIVE. WILL CONTINUE TO MONITOR.
[2022-08-25 08:28] VITALS: BP 152/90
[2022-08-25] MEDS: MUPIROCIN OINT 2% 22 GM TUBE NS SCH (09:05)
--- NOTE | 2022-08-25 15:00 | NUR ---
MS RECREATION AIDE NOTE PT DISCHARGED TO [facility] IN STABLE CONDITION, PT AOX1, ORIENTED TO SELF ONLY, APHASIC, UNABLE TO MAKE NEEDS KNOWN. ON ROOM AIR BREATHING WITHOUT DIFFICULTY. NOT IN ANY FORM OF ACUTE DISTRESS. VITAL SIGNS TAKEN, STABLE, RECORDED. SKIN IS INTACT, GENERALIZED DISCOLORATION, SCABBING, AND DRYNESS POA. PT ONLY HAS A PAIR OF EYEGLASSES WITH HIM CONFIRMED BY SISTER BONNIE AT BEDSIDE. DISCHARGE INSTRUCTIONS RELAYED TO G[facility]BI ORELLANA OF THE SAME [facility]. MED RECON INCLUDED. IV ACCESS ON LEFT FOREARM G#22 INTACT AND FLUSHING WELL, INSERTED 08/24/22 HAS NOT BEEN REMOVED DUE TO CONTINUATION OF IV ATB AT THE [facility]. G-TUBE IS INTACT WITH DRY DRESSING AT THE INSERTION SITE. PATIENT LEFT THE UNIT AT 1445 [place]IA [place] WITH 3 DIRECT CARE COUNSELOR. MD AND CHARGE NURSE AWARE OF THE DISCHARGE,
== END 2022-08-25 14:50 | DRG 393 ==
LOC: ER 15:34 → MED 19:31
PROVIDERS: ADMIT Internal Medicine
PROC: 0DH63UZ Insertion of Feeding Device into Stomach, Percutaneous Approach (ICD-10-PCS; principal; 2022-08-19)
DX: K94.23 Gastrostomy malfunction (principal); A41.59 Other Gram-negative sepsis; G93.41 Metabolic encephalopathy; N17.0 Acute kidney failure with tubular necrosis; N39.0 Urinary tract infection, site not specified; G40.909 Epilepsy, unspecified, not intractable, without status epilepticus; Y83.3 Surgical operation with formation of external stoma as the cause of abnormal reaction of the patient, or of later complication, without mention of misadventure at the time of the procedure; Y92.129 Unspecified place in nursing home as the place of occurrence of the external cause; F32.9 Major depressive disorder, single episode, unspecified; I10 Essential (primary) hypertension; R13.10 Dysphagia, unspecified; R33.9 Retention of urine, unspecified; Z86.73 Personal history of transient ischemic attack (TIA), and cerebral infarction without residual deficits; K21.9 Gastro-esophageal reflux disease without esophagitis; D72.829 Elevated white blood cell count, unspecified
CPT/HCPCS: 36415; 43246; 71045-TC; 80048-TC; 80053-TC; 81001; 82962-TC; 83735-TC; 84100-TC; 85025-TC; 85730-TC; 87040-TC; 87081-TC; 87086-TC; A4223; C9803; G0378; J0690; J1815; J2060; J2405; J2543; J2704; J3490; J7060

== ENCOUNTER 2022-10-01 23:35 | Emergency (ER) | payer MEDICARE, OTHER ==
[~2022-10-01] VITALS: Ht 177.8 cm; Wt 70.3 kg
[~2022-10-01 23:35] MED LIST: ACET-868 GT; ASPI-1169 GT; ATOR40TA GT; CHLO473M5 MM; ENOX40DI SQ; HYDR28.32 TP; IPRA3AMP23 IH; KETO15CR2 TP; LANS30CA56 GT; LISI20TA30 GT; NUT.250L18 PO; QUET25TA GT; SERT50TA GT; VALP250S4 GT
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
--- NOTE | 2022-10-02 00:27 | NUR ---
BROUGHT TO CT DEPT
--- NOTE | 2022-10-02 00:37 | NUR ---
CAME BACK FROM CT DEPT
--- NOTE | 2022-10-02 01:14 | NUR ---
[facility] CALLED FOR BLS GOING BACK TO SNF PER SAMARIA ETA 15 MIN
--- NOTE | 2022-10-02 01:36 | NUR ---
REPORT GIVEN TO STAFF SOSA. REPORT GIVEN TO [facility] STAFF. PT WILL BE GOING BACK TO [facility] [[email or web address]] VIA AMBULANCE
[2022-10-02 01:56] VITALS: BP 129/77
== END 2022-10-02 01:56 ==
LOC: ER 23:49
DX: S09.8XXA Other specified injuries of head, initial encounter (principal); I10 Essential (primary) hypertension; G40.909 Epilepsy, unspecified, not intractable, without status epilepticus; E11.9 Type 2 diabetes mellitus without complications; Z79.899 Other long term (current) drug therapy; Z79.82 Long term (current) use of aspirin; W19.XXXA Unspecified fall, initial encounter; Y93.89 Activity, other specified; Y92.89 Other specified places as the place of occurrence of the external cause; Y99.8 Other external cause status
CPT/HCPCS: 70450-TC

== ENCOUNTER 2022-12-14 20:18 | Emergency (ER) | payer MEDICARE, OTHER ==
[~2022-12-14] VITALS: Ht 182.9 cm; Wt 789.3 kg
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
--- NOTE | 2022-12-14 21:03 | NUR ---
Patient taken to CT via gurney by [facility].
[2022-12-14] MEDS ORDERED: IBUPROFEN 400 MG TABLET PO ONE (21:30)
[2022-12-14] MEDS ORDERED: ACETAMINOPHEN ES 500 MG TABLET PO ONE (21:30)
[2022-12-14] MEDS ORDERED: IBUPROFEN 400 MG TABLET ONE (21:38)
[2022-12-14] MEDS ORDERED: ACETAMINOPHEN ES 500 MG TABLET ONE (21:38)
--- NOTE | 2022-12-14 21:44 | NUR ---
[facility] CALLED ETA 2-3 HOURS
--- NOTE | 2022-12-14 22:50 | NUR ---
Tried to call [place] facility to give report, however the nurse didn't picked up the call.
--- NOTE | 2022-12-14 23:07 | NUR ---
Patient discharged to facility in stable condition. Written and verbal after care instructions given. Patient verbalizes understanding of instruction. S Transport team picked the patient to transfer back to facility.
[2022-12-14 23:10] VITALS: BP 146/83; TEMP 98.2; O2SAT 99
== END 2022-12-14 23:11 ==
LOC: ER 20:21
DX: S00.83XA Contusion of other part of head, initial encounter (principal); G40.909 Epilepsy, unspecified, not intractable, without status epilepticus; I63.9 Cerebral infarction, unspecified; I10 Essential (primary) hypertension; E11.9 Type 2 diabetes mellitus without complications; Z79.899 Other long term (current) drug therapy; Z79.82 Long term (current) use of aspirin; Y04.0XXA Assault by unarmed brawl or fight, initial encounter; Y93.89 Activity, other specified; Y92.89 Other specified places as the place of occurrence of the external cause; Y99.8 Other external cause status
CPT/HCPCS: 70486-TC